=== PATIENT | female | born 1980 | race Caucasian/White ===

== ENCOUNTER 2023-08-17 12:02 | Outpatient (CLI) | payer BC, SELFPAY | END 2023-08-17 12:03 | disposition home or self-care (01) | PROVIDERS: PCP Physician Assistant Medical; Visit Provider Nurse Practitioner Family | DX: K11.20 Sialoadenitis, unspecified (principal) | CPT/HCPCS: 85651; 86140 ==

== ENCOUNTER 2024-01-06 13:20 | Outpatient (CLI) | payer BC, SELFPAY ==
--- NOTE | 2024-01-06 13:45 | MR_ITS ---
Patient: ERNIE PARKER Facility:?[facility] Patient ID:?[id number] Site Patient ID:?[id number]. Site :?[id number] Study:?MRI-Spine Cervical W/O-01/06/2024 2:56:10 PM Ordering Physician:?BRITTA MARROQUIN Final Report: Indication: Cervical radiculitis. Technique: Multisequence multiplanar MRI of the cervical spine without the use of intravenous contrast. Comparison: MRI cervical spine dated 02/05/[address] cervical spine dated 07/10/2017. Findings: Straightening of the normal cervical lordosis. Posterior aspects of the vertebral bodies are aligned. Redemonstrated operative changes C3-C5 ACDF and intervertebral disc spacer placement. The cervical spinal cord is normal in signal intensity. The paraspinal soft tissues are within normal limits. C2-C3 and C3-C4: No significant spinal canal or neural foraminal stenosis. C4-C5: Small posterior disc osteophyte complex without significant resultant spinal canal stenosis. No significant left neural foraminal narrowing. Mild- moderate right neural foraminal narrowing as sequela uncovertebral hypertrophy. C5-C6: Mild spinal canal stenosis resulting from posterior disc osteophyte complex and ligamentum flavum hypertrophy. Slight progression of mild-moderate bilateral neural foraminal narrowing. C6-C7: Mild spinal canal stenosis resulting from a posterior disc osteophyte complex and ligamentum flavum hypertrophy. No significant left neural foraminal narrowing. Mild right neural foraminal narrowing predominantly from uncovertebral spurring. C7-T1: No significant spinal canal or neural foraminal stenosis. Impression: 1. Redemonstrated operative changes of C3-C5 ACDF and intervertebral disc spacer placement. 2. At C4-C5, similar mild-moderate right neural foraminal narrowing. 3. At C5-C6, mild spinal canal stenosis and mild-moderate bilateral neural foraminal narrowing, slightly progressed since 07/10/2027 CT cervical spine. 4. At C6-C7, similar mild spinal canal stenosis and right neural foraminal narrowing. 5. Normal signal intensity of the cervical spinal cord. Dictated by Lawrence Grant MD @ 01/06/2024 3:41:00 PM Signed by:?Lawrence Grant MD @01/06/2024 3:41:00 PM (Electronic Signature)
== END 2024-01-06 13:21 | disposition home or self-care (01) ==
LOC: MRI 13:22
PROVIDERS: PCP Physician Assistant Medical; Visit Provider Physical Medicine & Rehabilitation
DX: M54.12 Radiculopathy, cervical region (principal); M50.221 Other cervical disc displacement at C4-C5 level; M50.222 Other cervical disc displacement at C5-C6 level; M50.223 Other cervical disc displacement at C6-C7 level
CPT/HCPCS: 72141

== ENCOUNTER 2024-02-27 11:40 | Emergency (ER) | payer BC, SELFPAY ==
[2024-02-27 11:46] VITALS: BP 147/89; PULSE 108; RESP 18; TEMP 37.1; O2SAT 95; BMI 39.5
--- NOTE | 2024-02-27 11:57 | ED.GENADULT ---
HPI - General Adult General Chief complaint: Headache/Migraine Stated complaint: migraine Time Seen by Provider: 02/27/24 11:46 History of Present Illness HPI narrative: has a known hx of migraines. comes here today due to having a headache that will not go away. has recently seen a neurologist and is getting her medications adjusted. has been up most of the night with a headache. is sensitive to the light and has pain behind her eyes. 43-year-old woman presenting to emergency department with concern of headache that is been persistent for at least 2 weeks. Does have a long history of migraines and there have been some changes to her medications recently. Is now seeing Neurology. Had been taking regular Aleve and this was discontinued 2 weeks ago. She notes a history of occipital insertion area pain sharp pain behind her eyes. She is photophobic. Nauseated. No extremity weakness or numbness is noted. History of cervicogenic headaches as noted with history of radiofrequency ablations as well. Notes a history of regular opiate use but I believe this was discontinued as of a year ago. Has been having trouble sleeping due to the pain. Did try rizatriptan last night without relief. Also dose of lorazepam. Treatment has also been attempted with occipital nerve blocks in the past without relief. Was initiated 2? days ago on a Medrol Dosepak. Feels that it may have contributed to some sweats. No fever. No rash. Would have considered going to neurology clinic for ?infusion but they are closed for the weekend and recommended presenting to the emergency department. Related Data Home Medications Medication Instructions Recorded Confirmed colestipol 1 gram tablet tab PO 11/26/22 09/07/23 desogestrel 0.15 mg-ethinyl 1 tab PO 11/26/22 09/07/23 estradiol 0.03 mg tablet (Apri) duloxetine 60 mg capsule,delayed ea PO 11/26/22 09/07/23 release lorazepam 1 mg tablet 1 mg PO 11/26/22 09/07/23 omeprazole 20 mg capsule,delayed 20 mg PO 11/26/22 09/07/23 release ferrous sulfate 325 mg (65 mg 325 mg PO QDAY 08/17/23 09/07/23 iron) tablet (FeroSul) magnesium 250 mg tablet 250 mg PO QDAY 08/17/23 09/07/23 omega-3s 667 ro-ibm-gan-fish cap PO 08/17/23 09/07/23 oil-vitamin D3 250 unit capsule sumatriptan succinate 50 mg tablet See Rx Instructions PO .COMPLEX 08/17/23 09/07/23 Previous Rx's Medication Instructions Recorded azithromycin 250 mg tablet See Rx Instructions PO .COMPLEX #6 09/07/23 tabs Allergies Allergy/AdvReac Type Severity Reaction Status Date / Time Sulfa (Sulfonamide Allergy Unknown Hives Verified 09/07/23 14:56 Antibiotics) Review of Systems Status of ROS: Reports: 6 or more systems reviewed and unremarkable except as noted in History and below [facility] Medical History Sinusitis ?J32.9 - Chronic sinusitis, unspecified (ICD-10) Social History Smoking Status: Current every day smoker What tobacco products do you use: cigarettes Do you use any of these nicotine containing products: None Second hand tobacco smoke exposure: No How often do you have a drink containing alcohol: never AUDIT-C Alcohol total score: 0 Non-prescribed substance use: denies use service: No Exam Narrative: Exam Narrative: She is wearing sunglasses in a darkened room. Seems generally uncomfortable. Fatigued. Speech is clear. Cranial nerves 2-12 are intact. Photophobic is noted pupils at 3 mm and equal. Head is atraumatic. She is sore to palpation in the paracervical and trapezial musculature. Breathing easily. Heart in elevated rate but regular rhythm. Skin is warm and dry without rash. Well-perfused without edema. Moving all extremities without difficulty. Const: Vital Signs, click to edit/add: Vital Signs - 24 hr 02/27/24 11:46 02/27/24 12:56 02/27/24 12:59 Temperature 98.7 F Pulse Rate [Pulse Oximeter] 108 H 94 Respiratory Rate 18 16 Blood Pressure [Le ft Upper Arm] 147/89 H Pulse Oximetry 95 96 97 Oxygen Delivery Me thod Room Air Documenting provider has reviewed patient's vital signs: yes Course Vital Signs Vital signs: Initial Vital Signs Temperature 98.7 F 02/27/24 11:46 Temperature Source Temporal Artery Scan 02/27/24 11:46 Pulse Rate 108 H 02/27/24 11:46 Pulse Rhythm Regular 02/27/24 11:46 Respiratory Rate 18 02/27/24 11:46 Blood Pressure 147/89 H 02/27/24 11:46 Blood Pressure Mean 108 H 02/27/24 11:46 Blood Pressure Position Supine 02/27/24 11:46 Pulse Oximetry 95 02/27/24 11:46 Vital Signs Temperature 98.7 F 02/27/24 11:46 Pulse Rate 108 H 02/27/24 11:46 Respiratory Rate 18 02/27/24 11:46 Blood Pressure 147/89 H 02/27/24 11:46 Pulse Oximetry 95 02/27/24 11:46 Temperature 98.7 F 02/27/24 11:46 Pulse Rate 94 02/27/24 12:59 Respiratory Rate 16 02/27/24 12:59 Blood Pressure 147/89 H 02/27/24 11:46 Pulse Oximetry 97 02/27/24 12:59 Oxygen Delivery Method Room Air 02/27/24 12:59 Medications Administered Medications: Discontinued Medications Generic Name Dose Route Start Last Admin Trade Name Freq PRN Reason Stop Dose Admin Dexamethasone 10 mg 02/27/24 13:41 02/27/24 14:33 Dexamethasone 10 Mg/Ml Inj IVP 02/27/24 13:42 10 mg ONCE ONE Administration Diphenhydramine HCl 12.5 mg 02/27/24 12:08 02/27/24 12:49 Diphenhydramine 50 Mg/Ml Inj IVP 02/27/24 12:09 12.5 mg ONCE ONE Administration Sodium Chloride 1,000 mls @ 1,000 mls/hr 02/27/24 12:08 02/27/24 14:20 0.9 % Sodium Chloride 1000 Ml IV 02/27/24 13:07 Infused .Q1H ONE Infusion Ketamine HCl 20 mg/ Sodium 100.2 mls @ 200.4 mls/hr 02/27/24 13:41 02/27/24 15:31 Chloride IVPB 02/27/24 13:42 Infused ONCE ONE Infusion Ketorolac Tromethamine 30 mg 02/27/24 12:08 02/27/24 12:49 Ketorolac 30 Mg/Ml Inj IVP 02/27/24 12:09 30 mg ONCE ONE Administration Lidocaine HCl 10 ml 02/27/24 16:17 02/27/24 17:03 Lidocaine Hcl 2 % Multidose 20 Ml Vial INJECTION 02/27/24 16:18 10 ml ONCE ONE Administration Lorazepam 0.5 mg 02/27/24 12:08 02/27/24 12:49 Lorazepam 2 Mg/Ml Inj IVP 02/27/24 12:09 0.5 mg ONCE ONE Administration Olanzapine 10 mg 02/27/24 17:01 02/27/24 17:09 Olanzapine 5 Mg Tab.Rapdis PO 10 mg ONCE PRN Administration insomnia Ondansetron HCl 4 mg 02/27/24 12:08 02/27/24 12:49 Ondansetron 2 Mg/Ml Inj IVP 02/27/24 12:09 4 mg ONCE ONE Administration Promethazine HCl 12.5 mg 02/27/24 14:51 02/27/24 15:12 Promethazine 25 Mg/Ml Inj IVP 02/27/24 14:52 12.5 mg ONCE ONE Administration Medical Decision Making MDM Narrative Medical decision making narrative: Describes a migraine which is not atypical other than duration. Does seem to correlate now with cessation of regularly dosed NSAID. She does struggle with chronic daily headaches. Will try to break this headache for her. No red flags other than duration of symptoms. Has had extensive evaluation and care to date. Multifactorial origin to headaches. Does not appear to have infectious etiology here today. Ordered for IV fluids and diphenhydramine and Zofran and dose of lorazepam and ketorolac. Particularly as having trouble recovering from this headache and has abruptly discontinued NSAIDs, ketorolac might be more helpful. Would consider addition of dexamethasone as well though this is less urgent. On reassessment still with pain. Continuing IV fluids and ordered for ketamine infusion. Became nauseated and ordered for promethazine. Generally improved though headache still remains. Eye symptoms had improved finally as considering atomizing intranasal lidocaine. Sleep has been difficult and may be contributing to perpetuate holloway of headache. We have settled this down to a significant degree and hopefully with a good night of sleep might yet be successful. She had tried some melatonin as well last night. Will make a couple tabs of olanzapine also available on departure that might be helpful with sleep tonight. See patient discharge plan for further discussion. Medical Records Medical records reviewed: Yes I reviewed the patient's medical records Discharge Plan Discharge Clinical Impression: Migraine, Cervicogenic headache Patient Disposition: Home w/ Parent or Adult Condition: Improved Additional Instructions: Continue to focus on hydration. Try to get in a little heart pumping exercise daily. Hopefully can get some rest tonight. Return as needed. As discussed, atomized intranasal lidocaine might be helpful for ocular migraine symptoms. Take 5mg of the olanzepine if needed for sleep. If not asleep in an hour, can take another one. Prescriptions: No Action colestipol 1 gram tablet PO desogestrel-ethinyl estradiol [Apri] 0.15-0.03 mg tablet 1 tab PO lorazepam 1 mg tablet 1 mg PO duloxetine 60 mg capsule,delayed release(DR/EC) PO Patient Comments: TAKE 1 CAPSULE BY MOUTH ONCE DAILY. TAKE IN ADDITION TO 30 MG CAPSULE DAILY FOR TOTAL OF 90 MG/DAY. omeprazole 20 mg capsule,delayed release(DR/EC) 20 mg PO Patient Comments: TAKE 1 CAPSULE BY MOUTH EVERY DAY BEFORE A MEAL sumatriptan succinate 50 mg tablet See Rx Instructions PO .COMPLEX Rx Instructions: take 1 tab at onset of headache; if no relief may repeat 1 tab after at least 2 hrs; max = 4 tabs/24 hr PO ferrous sulfate [FeroSul] 325 mg (65 mg iron) tablet 325 mg PO QDAY [id number]-[id number] oil-D3 667-250 mg-unit capsule PO magnesium 250 mg tablet 250 mg PO QDAY azithromycin 250 mg tablet See Rx Instructions PO .COMPLEX Qty: 6 0RF Rx Instructions: For 250 mg dose pack: take 500 mg today (day 1), then 250 mg for 4 days (days 2-5) PO Follow Up/Referrals: Joanna Martinez PA-C [Primary Care Provider] - Stand Alone Forms: [employer] Info Instructions
[2024-02-27] MEDS: 0.9 % SODIUM CHLORIDE 1000 ml 1,000 ML IV (12:48)
[2024-02-27] MEDS: LORazepam 2 MG/ML inj 0.5 MG IVP (12:49)
[2024-02-27] MEDS: KETOROLAC 30 MG/ML inj IVP (12:49)
[2024-02-27] MEDS: ONDANSETRON 2 MG/ML inj 4 MG IVP (12:49)
[2024-02-27] MEDS: diphenhydrAMINE 50 MG/ML inj 12.5 MG IVP (12:49)
[2024-02-27 12:56] VITALS: O2SAT 96
[2024-02-27 12:59] VITALS: PULSE 94; RESP 16; O2SAT 97
[2024-02-27] MEDS: KETAMINE 50 MG/0.5 ML 20 MG in 0.9 % SODIUM CHLORIDE 100 ml 100 ML 200.4 MG IVPB (14:33)
[2024-02-27] MEDS: dexAMETHasone 10 MG/ML inj IVP (14:33)
[2024-02-27] MEDS: PROMETHAZINE 25 MG/ML INJ 12.5 MG IVP (15:12)
[2024-02-27] MEDS: lidocaine HCL 2 % MULTIDOSE 20 ML VIAL 10 ML INJECTION (17:03)
[2024-02-27] MEDS: OLANZapine 5 MG TAB.RAPDIS 10 MG PO (17:09)
== END 2024-02-27 17:14 | disposition home or self-care (01) ==
PROVIDERS: Emergency Provider Family Medicine; PCP Physician Assistant Medical
DX: G43.909 Migraine, unspecified, not intractable, without status migrainosus (principal); G47.01 Insomnia due to medical condition
CPT/HCPCS: 94761; 96365; 96375; 99284; A9270; J1100; J1200; J1885; J2060; J2405; J2550; J3490; J7030

== ENCOUNTER 2024-03-01 21:07 | Emergency (ER) | payer BC, SELFPAY ==
[2024-03-01 21:22] VITALS: BP 175/112; PULSE 123; RESP 20; TEMP 36.9
--- NOTE | 2024-03-01 21:32 | ED_ITS ---
HPI - Headache General Time Seen by Provider: 21:32 Date Seen: 03/01/24 Chief Complaint: Headache/Migraine Stated Complaint: migraine since Fri Time Seen by Provider: 03/01/24 21:23 Source: patient and RN notes reviewed Mode of arrival: ambulatory Limitations: no limitations History of Present Illness HPI Narrative: This 43-year-old female is coming in with concern of ongoing headache with known underlying headache disorder and insomnia. She started with a headache last week about Friday, steroids were started on . She has not slept since Friday now. Her headache has moved around a bit. Right now she is feeling it like a mask over her eyes and in her head. There has been no neurologic changes. She has had no fevers, has not been sick with anything. She was in clinic earlier today, did get Toradol, Benadryl. She was started on nortriptyline and Flexeril to help her with sleep. It is not change her symptoms at all. She also did get dexamethasone in clinic today. She was started on steroids last as noted. She is not had insomnia to this level from her headaches before. Her blood pressure was elevated earlier as well. She has no visual changes, no numbness tingling or weakness anywhere. No chest symptoms noted. She does not carry a history of hypertension. We did review that pain, loss of sleep, steroids can all cause elevation of her blood pressure. She denies any hallucinations. She was in the ER on February 26, have reviewed that visit. She is not sure if she has ever tried Ambien. Did review with her that we may consider giving her a tablet to take at home. It is probably 1 of the more potent sleep a that I can give her but we did discuss the addictive potential the side effects of this. She does not believe she is keeping up with her fluids, states once the headaches get this bad she has a hard time staying adequately hydrated. She does have some photophobia. MD elicited complaint: headache Related Data Home Medications Medication Instructions Recorded Confirmed colestipol 1 gram tablet tab PO 11/26/22 09/07/23 desogestrel 0.15 mg-ethinyl 1 tab PO 11/26/22 09/07/23 estradiol 0.03 mg tablet (Apri) duloxetine 60 mg capsule,delayed ea PO 11/26/22 09/07/23 release lorazepam 1 mg tablet 1 mg PO 11/26/22 09/07/23 omeprazole 20 mg capsule,delayed 20 mg PO 11/26/22 09/07/23 release ferrous sulfate 325 mg (65 mg 325 mg PO QDAY 08/17/23 09/07/23 iron) tablet (FeroSul) magnesium 250 mg tablet 250 mg PO QDAY 08/17/23 09/07/23 omega-3s 667 pg-sxv-hsb-fish cap PO 08/17/23 09/07/23 oil-vitamin D3 250 unit capsule sumatriptan succinate 50 mg tablet See Rx Instructions PO .COMPLEX 08/17/23 09/07/23 Previous Rx's Medication Instructions Recorded azithromycin 250 mg tablet See Rx Instructions PO .COMPLEX #6 09/07/23 tabs Allergies Allergy/AdvReac Type Severity Reaction Status Date / Time Sulfa (Sulfonamide Allergy Unknown Hives Verified 09/07/23 14:56 Antibiotics) Review of Systems Status of ROS: Reports: 6 or more systems reviewed and unremarkable except as noted in History and below [facility] Medical History Sinusitis ?J32.9 - Chronic sinusitis, unspecified (ICD-10) Social History Smoking Status: Current every day smoker What tobacco products do you use: cigarettes Do you use any of these nicotine containing products: None Second hand tobacco smoke exposure: No How often do you have a drink containing alcohol: never AUDIT-C Alcohol total score: 0 Non-prescribed substance use: denies use service: No Exam Const: Vital Signs, click to edit/add: Vital Signs - 24 hr 03/01/24 21:22 Temperature 98.4 F Pulse Rate [Pulse Oximeter] 123 H Respiratory Rate 20 Blood Pressure [Ri ght Forearm] 175/112 H Oxygen Delivery Me thod Room Air This patient is alert, interactive, no apparent distress. She is resting in the room with the lights out. Symmetrical facial function, speech noted. Conjugate gaze. Strength is 5/5 and symmetric, normal light touch sensation. Lungs are clear anteriorly, no wheezing or crackles, no tachypnea. CV regular rate and rhythm, no murmur. Abdomen is soft, nontender, nondistended, no organomegaly or tenderness noted. Documenting provider has reviewed patient's vital signs: yes Course Course ED Course: This patient has migraine status, steroids are appropriate in this situation but she is having significant issues with insomnia on a which are very well likely contributed by the steroids. All of this is likely elevating her blood pressure in combination. We have discussed treatment of her headache with 15 mg IV Toradol, Reglan and Benadryl protocol and IV fluids. Will plan on sending her home with 10 mg Ambien. Reevaluation(s) Time of Reevaluation #1: 23:00 Reevaluation #1: Patient is lying with an ice pack on her head. States left side of her head feels better, right side is still problematic but she feels sleep is levine. We are going to send her home with a 10 mg Ambien to try to take for sleep. She is tried melatonin, 2 mg of Ativan, this did not work for her either. She admits she has not taken oral steroids for maybe years. We discussed whether she needed more medicines for further headache control, she declined. She wants to go home and try to sleep. Vital Signs Vital signs: Initial Vital Signs Temperature 98.4 F 03/01/24 21:22 Temperature Source Temporal Artery Scan 03/01/24 21:22 Pulse Rate 123 H 03/01/24 21:22 Respiratory Rate 03/01/24 21:22 Blood Pressure 175/112 H 03/01/24 21:22 Blood Pressure Mean 133 H 03/01/24 21:22 Oxygen Delivery Method Room Air 03/01/24 21:22 Vital Signs Temperature 98.4 F 03/01/24 21:22 Pulse Rate 123 H 03/01/24 21:22 Respiratory Rate 03/01/24 21:22 Blood Pressure 175/112 H 03/01/24 21:22 Oxygen Delivery Method Room Air 03/01/24 21:22 Temperature 98.4 F 03/01/24 21:22 Pulse Rate 123 H 03/01/24 21:22 Respiratory Rate 03/01/24 21:22 Blood Pressure 175/112 H 03/01/24 21:22 Oxygen Delivery Method Room Air 03/01/24 21:22 Medications Administered Medications: Discontinued Medications Generic Name Dose Route Start Last Admin Trade Name Freq PRN Reason Stop Dose Admin Diphenhydramine HCl 25 mg 03/01/24 21:42 03/01/24 22:12 Diphenhydramine 50 Mg/Ml Inj IVP 03/01/24 21:43 25 mg ONCE ONE Administration Sodium Chloride 1,000 mls @ 1,000 mls/hr 03/01/24 21:43 03/01/24 22:54 0.9 % Sodium Chloride 1000 Ml IV 03/01/24 22:42 Infused .Q1H MAY Infusion Metoclopramide HCl 10 mg/ 102 mls @ 306 mls/hr 03/01/24 21:42 03/01/24 22:45 Sodium Chloride IVPB 03/01/24 21:43 Infused ONCE ONE Infusion Ketorolac Tromethamine 15 mg 03/01/24 21:42 03/01/24 22:12 Ketorolac 15 Mg/Ml Inj IVP 03/01/24 21:43 15 mg ONCE ONE Administration Discharge Plan Discharge Clinical Impression: 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 If it does work to help you sleep, can contact your primary clinic in the morning to see if you can get a few more tablets until the side effects of the steroids wear off. I am concerned that you are suffering from insomnia from the use of steroids. Continue to work with your primary care provider and neurology on medication management for your headaches. Try to drink adequate fluids as this can help patients with underlying headache disorders. Activity Level: Activity as Tolerated Prescriptions: No Action colestipol 1 gram tablet PO desogestrel-ethinyl estradiol [Apri] 0.15-0.03 mg tablet 1 tab PO lorazepam 1 mg tablet 1 mg PO duloxetine 60 mg capsule,delayed release(DR/EC) PO Patient Comments: TAKE 1 CAPSULE BY MOUTH ONCE DAILY. TAKE IN ADDITION TO 30 MG CAPSULE DAILY FOR TOTAL OF 90 MG/DAY. omeprazole 20 mg capsule,delayed release(DR/EC) 20 mg PO Patient Comments: TAKE 1 CAPSULE BY MOUTH EVERY DAY BEFORE A MEAL sumatriptan succinate 50 mg tablet See Rx Instructions PO .COMPLEX Rx Instructions: take 1 tab at onset of headache; if no relief may repeat 1 tab after at least 2 hrs; max = 4 tabs/24 hr PO ferrous sulfate [FeroSul] 325 mg (65 mg iron) tablet 325 mg PO QDAY [id number]-epa-fish oil-D3 667-250 mg-unit capsule PO magnesium 250 mg tablet 250 mg PO QDAY azithromycin 250 mg tablet See Rx Instructions PO .COMPLEX Qty: 6 0RF Rx Instructions: For 250 mg dose pack: take 500 mg today (day 1), then 250 mg for 4 days (days 2-5) PO Follow Up/Referrals: Joanna Martinez PA-C [Primary Care Provider] - Stand Alone Forms: [employer] Info Instructions
[2024-03-01] MEDS: KETOROLAC 15 MG/ML inj IVP (22:12)
[2024-03-01] MEDS: diphenhydrAMINE 50 MG/ML inj 25 MG IVP (22:12)
[2024-03-01] MEDS: 0.9 % SODIUM CHLORIDE 1000 ml 1,000 ML IV (22:14)
[2024-03-01] MEDS: METOCLOPRAMIDE HCL 10 MG in 0.9 % SODIUM CHLORIDE 100 ml 100 ML 306 MG IVPB (22:19)
[2024-03-01] MEDS: ZOLPIDEM 5 MG TABLET 10 MG PO (23:09)
== END 2024-03-01 23:13 | disposition home or self-care (01) ==
PROVIDERS: Emergency Provider Family Medicine; PCP Physician Assistant Medical
DX: F19.982 Other psychoactive substance use, unspecified with psychoactive substance-induced sleep disorder (principal); G43.909 Migraine, unspecified, not intractable, without status migrainosus
CPT/HCPCS: 96365; 96375; 99284; A9270; J1200; J1885; J2765; J7030

== ENCOUNTER 2024-10-18 09:07 | Outpatient (CLI) | payer BC, SELFPAY | END 2024-10-18 09:08 | disposition home or self-care (01) | PROVIDERS: PCP Physician Assistant Medical; Visit Provider Nurse Practitioner Family | DX: R10.9 Unspecified abdominal pain (principal) | CPT/HCPCS: 87086 ==

== ENCOUNTER 2025-02-08 12:34 | Outpatient (CLI) | payer BC, SELFPAY ==
--- NOTE | 2025-02-08 13:00 | MR_ITS ---
[facility] [address] [facility] [address] Phone:?[phone] Fax:?[phone] Referring Physician Information: Vernon Villaseñor M.D. [id number] [facility] [address] Phone:?[phone] Fax:?[phone] Patient:Von Le D.O.B:?1980 Sex:?Female Phone:?[phone] [facility] MRN:?[id number] Exam Date:?02/08/2025 EXAM: MRI OF THE LEFT ANKLE WITHOUT CONTRAST CLINICAL INFORMATION: Lateral ankle soft tissue mass. Swelling. No specific injury. No history of surgery to this area. TECHNICAL INFORMATION: Axial PD and T2 fat saturation. Sagittal STIR. Sagittal PD and T2. Coronal PD and T2 fat saturation. Oblique axial PD fat saturation images acquired. There are no prior studies available for comparison. INTERPRETATION: Tibiotalar joint: No discrete talar dome osteochondral lesion. The tibiotalar joint osteochondral surfaces appear relatively preserved. No abnormal joint effusion and without discrete loose body. Subtalar joints: No discrete osteochondral lesion. No other subchondral signal abnormality. No abnormal joint effusion and without discrete loose body. Other tarsal joints: Remainder of visualized joints of the hindfoot and midfoot do not demonstrate significant narrowing or effusion. No evidence for an occult fracture, osseous contusion or stress reaction. No evidence for AVN. No other bone marrow edema pattern. Ligaments: The anterior tibiofibular ligament is intact. The anterior talofibular ligament is intact. The posterior tibiofibular and posterior talofibular ligaments are intact. The calcaneofibular ligament is intact. The superficial and deep portions of the medial deltoid ligament are intact. Tendons: The peroneus longus and brevis tendons are intact. There are mild changes of peroneus longus tendinopathy traversing the distal fibular tip. No evidence for a tear or split. No evidence for peroneal tenosynovitis. The posterior tibialis, flexor digitorum and flexor hallucis longus tendons are intact. There are mild changes of posterior tibialis and flexor digitorum tenosynovitis. No tendon tear or appreciable changes of tendinopathy. The extensor tendons are intact. The Achilles tendon is seen to be normally intact. There is a mild appearance of retrocalcaneal bursitis. Plantar aponeurosis: The plantar fascia origin appears normal in signal intensity and morphology. The remainder of the visualized plantar aponeurosis appears unremarkable. Neurovascular structures: The posterior tibial neurovascular structures appear unremarkable coursing past the ankle and through the tarsal tunnel. There is a 1.5 cm craniocaudal by 1.4 cm AP by 0.4 cm mediolateral predominant intermediate T2 signal intensity subcutaneous mass lesion situated superficial to the distal fibular tip. No bony changes of the adjacent fibula. No evidence for adjacent changes of soft tissue edema signal. CONCLUSION: 1. There is a 1.5 x 1.4 x 0.4 cm predominant intermediate and T2 signal intensity subcutaneous mass lesion situated superficial to the distal fibular tip. Appearance is not in keeping with a cyst or fluid collection. Signal characteristics suggest a possible fibrous type lesion. There are no adjacent bony changes or surrounding soft tissue inflammatory changes. Biopsy or resection would be necessary for definitive diagnosis. 2. Mild posterior tibialis and flexor digitorum tenosynovitis. Mild tibialis posterior tendinopathy. 3. Intact Achilles tendon with mild retrocalcaneal bursitis. 4. Unremarkable and intact appearance of the ankle ligaments. KES Electronically signed on 02/09/2025 7:49:00 AM by Castro Prince M.D.
== END 2025-02-08 12:35 | disposition home or self-care (01) ==
LOC: MRI 12:35
PROVIDERS: PCP Physician Assistant Medical; Visit Provider Orthopaedic Surgery
DX: R22.42 Localized swelling, mass and lump, left lower limb (principal); M65.872 Other synovitis and tenosynovitis, left ankle and foot; M76.62 Achilles tendinitis, left leg
CPT/HCPCS: 73721

== ENCOUNTER 2025-02-17 16:38 | Outpatient (CLI) | payer BC, SELFPAY | END 2025-02-17 16:39 | disposition home or self-care (01) | LOC: NFLDUCREF 16:38 | PROVIDERS: PCP Physician Assistant Medical; Visit Provider Family Medicine | DX: R10.9 Unspecified abdominal pain (principal); N39.0 Urinary tract infection, site not specified; N30.00 Acute cystitis without hematuria | CPT/HCPCS: 87086 ==

== ENCOUNTER 2025-02-23 09:22 | Day surgery (SDC) | payer BC, SELFPAY ==
[2025-02-23 09:33] VITALS: BP 136/93; PULSE 96; RESP 16; TEMP 36.7; O2SAT 95; BMI 39.5
[2025-02-23] MEDS: LACTATED RINGERS 1000 ML 1,000 ML 100 ML IV (09:40)
[2025-02-23] MEDS: SODIUM CHLORIDE 0.9 % (FLUSH) 10 ML SYRINGE IVF (09:40)
--- NOTE | 2025-02-23 09:40 | W.PM.H&PU ---
History & Physical Update History & Physical Update H&P Reviewed and patient assessed: No changes noted
--- NOTE | 2025-02-23 09:41 | PM.ORPRC ---
Procedure Note Date of procedure: 02/23/25 Procedure: PREOPERATIVE DIAGNOSIS: 1. Left ankle soft tissue mass POSTOPERATIVE DIAGNOSIS: 1. Left ankle soft tissue mass PROCEDURE: 1. Left ankle soft tissue mass excision SURGEON: Sid Villaseñor MD. DEATH CLAIM CLERK: Nathalia Mohan P.A.-C. - assisted with patient positioning, tissue retraction, limb manipulation/positioning, and wound closure. ANESTHESIA: Monitored anesthesia care with local anesthesia TOURNIQUET: 10 minutes at 250 mmHg ESTIMATED BLOOD LOSS: 0 mL COMPLICATIONS: None SPECIMEN: Subcutaneous soft tissue mass sent for pathology. INDICATIONS: The patient is a pleasant 44-year-old female who developed a slowly growing soft tissue mass of the lateral aspect of her left ankle. Mass was causing irritation with shoe wear and patient elected to have the mass excised and sent for pathology to confirm diagnosis. Prior to surgery, risks and benefits of procedure discussed with patient, all questions answered, and informed consent was obtained.. FINDINGS: Subcutaneous soft tissue mass, which measured 11 mm x 9 mm x 4 mm over the lateral ankle near the distal aspect of the lateral malleolus. DESCRIPTION OF PROCEDURE: Patient was seen preoperatively and operative site was marked. She was then brought to the operating room and placed supine on the operating table. A tourniquet placed on the patient's left thigh. Monitored anesthesia care was provided by anesthesia staff. The left lower extremities then prepped and draped in usual sterile fashion. Surgical time-out was performed confirming patient identity, surgical site, surgical procedure. Left lower extremity was elevated exam with Esmarch and tourniquet inflated 250 mmHg. Subcutaneous tissues overlying soft tissue mass were injected with 0.25% Marcaine with epinephrine. A longitudinal incision measuring approximately 2-3 cm was made over the subcutaneous soft tissue mass. The subcutaneous soft tissue mass was encountered and was adherent to the subcutaneous tissues. Soft tissue mass was dissected away from surrounding soft tissues using combination of tenotomy scissors and a knife. Mass was removed and sent for pathology. Tourniquet was released. Total tourniquet time was 10 minutes. Wound was irrigated with normal saline. Skin was then closed with 3-0 Vicryl inverted interrupted subcutaneous stitches followed by running 2-0 Stratafix subcuticular stitch and Dermabond. A sterile dressing was applied. Patient was awoken from anesthesia and transferred to the PACU in stable condition. PLAN: 1. Weight bear as tolerated 2. Ice and elevation as needed for pain and swelling 3. Tylenol and or ibuprofen as needed for pain control. 4. Advance activities as tolerated. 5. Follow-up in orthopedic clinic in 10-14 days for wound check.
[2025-02-23] MEDS: CEFAZOLIN 1 GM inj IVP (10:13)
[2025-02-23] MEDS: BUPIVACAINE 0.25% 30 ML INJECTION (10:14)
[2025-02-23 10:46] VITALS: BP 117/83; PULSE 95; RESP 18; TEMP 36.5; O2SAT 96
[2025-02-23 11:00] VITALS: BP 117/83; PULSE 89; RESP 18; O2SAT 96
[2025-02-23 11:15] VITALS: BP 137/85; PULSE 92; RESP 18; O2SAT 96
--- NOTE | 2025-02-23 11:16 | P.ANES_ITS ---
Anesthesia Charges Start Date/Time Anesthesia Start Date: 02/23/25 Anesthesia Start Time: 09:51 Stop Date/Time Anesthesia Stop Date: 02/23/25 Anesthesia Stop Time: 10:49 Coding CPT Codes CPT Codes: ANESTH LOWER LEG SURGERY - 70162 ([id number]) QK - LARGE ENGINE ASSEMBLER 2-4 CNCRNT ANES PROC, QX - TANKROOM TENDER SVC W/ MD MED DIRECTION, P3 - PATIENT W/SEVERE SYS DISEASE
--- NOTE | 2025-02-23 11:16 | W.ANESCHARGE ---
Anesthesia Charges Start Date/Time Anesthesia Start Date: 02/23/25 Anesthesia Start Time: 09:51 Stop Date/Time Anesthesia Stop Date: 02/23/25 Anesthesia Stop Time: 10:49 Coding CPT Codes CPT Codes: ANESTH LOWER LEG SURGERY - 86691 ([id number]) QK - REPAIR WELDER 2-4 CNCRNT ANES PROC, QX - DRAWING IN HAND SVC W/ MD MED DIRECTION, P3 - PATIENT W/SEVERE SYS DISEASE
--- NOTE | 2025-02-23 11:18 | P.ANES_ITS ---
Anesthesia Charges Start Date/Time Anesthesia Start Date: 02/23/25 Anesthesia Start Time: 09:51 Stop Date/Time Anesthesia Stop Date: 02/23/25 Anesthesia Stop Time: 10:49 Coding CPT Codes CPT Codes: ANESTH LOWER LEG SURGERY - 09396 ([id number]) P3 - PATIENT W/SEVERE SYS DISEASE, QK - GRAPPLE YARDER OPERATOR 2-4 CNCRNT ANES PROC, QX - ANALYST FOOD AND BEVERAGE SVC W/ MD MED DIRECTION
--- NOTE | 2025-02-23 11:18 | W.ANESCHARGE ---
Anesthesia Charges Start Date/Time Anesthesia Start Date: 02/23/25 Anesthesia Start Time: 09:51 Stop Date/Time Anesthesia Stop Date: 02/23/25 Anesthesia Stop Time: 10:49 Coding CPT Codes CPT Codes: ANESTH LOWER LEG SURGERY - 06136 ([id number]) P3 - PATIENT W/SEVERE SYS DISEASE, QK - MAJOR GIFTS MANAGER 2-4 CNCRNT ANES PROC, QX - EXTENSION FORESTER SVC W/ MD MED DIRECTION
== END 2025-02-23 11:20 | disposition home or self-care (01) ==
LOC: OR 09:23
PROVIDERS: PCP Physician Assistant Medical; Visit Provider Orthopaedic Surgery
PROC: (CPT 27618; principal; 2025-02-23 10:45)
DX: R22.42 Localized swelling, mass and lump, left lower limb (principal)
CPT/HCPCS: 27618; 00400; 01470; 88305; J0665; J0690; J1100; J2405; J2704; J3010; J7120